=== PATIENT | female | born 1990 | race Caucasian/White ===

== ENCOUNTER 2017-04-07 03:37 | Emergency (ER) | payer BC ==
[~2017-04-07] VITALS: Ht 165.1 cm; Wt 67.1 kg
[2017-04-07 03:37] VITALS: BP 117/95
--- NOTE | 2017-04-07 04:07 | PHYS DOC ---
General Chief Complaint: ABDOMINAL PAIN Stated Complaint: PAIN IN RT SIDE ABDOMEN Time Seen by MD: 03:39 Source: patient Exam Limitations: no limitations Problems: History of Present Illness Initial Comments Patient is 26-year-old female comes to the ED complaining of abdominal pain. Patient states that she developed right lower quadrant abdominal discomfort approximately 1 AM. It is described as sharp and crampy moderate to severe at its worst however on arrival she states that it is throbbing and 3 out of 10. She has decreased appetite + nausea no vomiting or diarrhea no fever chills sweats or body aches. She denies any travel or bad food exposure and no pre- arrival treatment. Forward bending at the waist and right heel strike while walking both make her symptoms worse improved somewhat with rest. Patient has had similar symptoms although not quite as bad intermittently several times in the past couple of weeks. She says symptoms typically start at night and in the past several lasted varying periods of time resolving spontaneously. She has sought no prior medical evaluation or treatment for this and does have history of right oophorectomy, she is due to start her menstrual period. Heart rate is 109 bpm otherwise ED vital signs are unremarkable. Last by mouth intake 1800 yesterday. Timing/Duration: other Severity: moderate Modifying Factors: worse with movement Associated Symptoms: other Allergies: Coded Allergies: No Known Drug Allergies (Unverified , 04/07/17) Past Medical History Medical History: other (ovarian cyst) Surgical History: other (R oophorectomy) Social History Smoker: quit greater than 1 year Alcohol: occasionally Drugs: none Review of Systems Constitutional: see HPI, denies chills, denies fever, denies malaise Respiratory: denies cough, denies shortness of breath Cardiovascular: denies chest pain, denies palpitations Gastrointestinal: see HPI Genitourinary: denies dysuria, denies frequency, denies hematuria Musculoskeletal: denies back pain, denies joint swelling, denies neck pain Psychiatric/Neurological: denies headache, denies numbness, denies paresthesia Physical Exam General Appearance: WD/WN, no apparent distress Ear, Nose, Throat: hearing grossly normal, normal ENT inspection Neck: non-tender, supple Respiratory: normal breath sounds, no respiratory distress Cardiovascular: normal peripheral pulses, regular rate, rhythm Gastrointestinal: soft (nondistended, positive McBurney point tenderness without rebound guarding or palpable mass, bowel sounds diminished.) Rectal: deferred Back: no CVA tenderness, no vertebral tenderness Extremities: non-tender, normal inspection Neurologic/Psychiatric: didactic instructor II-XII nml as tested, no motor/sensory deficits, alert, normal mood/affect, oriented x 3 Skin: normal color, warm/dry Orders, Labs, Meds urine neg Labs and urine studies unremarkable PATIENT: DAMARIS BERRY ACCOUNT: [id number] : 1990 LOCATION: ER AGE: 26 SEX: F EXAM STATUS: REG ER ORD. PHYSICIAN: MINH NAQVI DO REASON: RLQ pain r/o appy PROCEDURE: CT ABD PELV W/ IV CONTRST ONLY INDICATION: [id number] Omni 300 75cc: Right lower quadrant abdomen pain, nausea and vomiting severe tonight, intermittent x 1 week. Hx: Right ovary and fallopian tube removed 2014 due to large cyst per patient. No priors. COMPARISON: None. TECHNIQUE: Axial CT images were obtained through the abdomen and pelvis with intravenous contrast. One or more of the following individualized dose reduction techniques were utilized for this examination: 1. Automated exposure control; 2. Adjustment of the mA and/or kV according to patient size; 3. Use of iterative reconstruction technique. FINDINGS: Abdominal aorta is not grossly aneurysmal. There are some mildly enlarged lymph nodes in the bilateral groin. Numerous low density lesions are seen scattered throughout the liver. Some of these have the appearance of cysts and others are not well characterized on this exam. No peripancreatic edema. Spleen unremarkable. Low-density lesion left kidney measuring up to 11 mm. No left-sided hydronephrosis. Urinary bladder is largely decompressed. No right-sided hydronephrosis. There is either a complex cystic lesion or multiple cystic lesions adjacent to each other within the left hemipelvis measuring up to approximately 61 x 52 mm. The appendix measures up to about 6-7 mm without definite adjacent inflammation at this time. No dilated loops of bowel to suggest obstruction. There is some disc protrusions seen within the lumbar spine. IMPRESSION: 1. There is either a complex cystic lesion in the left adnexa or multiple cystic lesions adjacent to each other. Given the size of this structure a follow-up will be needed to exclude higher grade lesions. Would correlate with symptoms within the area. If more clarification is desired at this time follow-up pelvic ultrasound could BE obtained with transabdominal and transvaginal imaging. 2. The appendix is borderline dilated but there is not definitive adjacent inflammation at this time. Please note that some patients can have a borderline dilated appendix at baseline but if there is high clinical concern for appendicitis and further imaging evaluation is desired a follow-up exam could be obtained at a later time to assess for further increase in size the appendix or development of more definitive adjacent inflammation. 3. Numerous low density lesions are seen throughout the liver. The larger 1's have the appearance of cysts with some of them too small to characterize. 4. There is also a low-density lesion left kidney. Could be an additional cyst but incompletely evaluated on this exam. If more complete characterization is desired a follow-up ultrasound could BE obtained on a nonemergent basis. In a patient of this age these are typically benign Electronically signed by: Viridiana Bhandari MD (04/07/2017 5:05 AM) [facility] [place] [facility] DICTATED AND SIGNED BY: VIRIDIANA BHANDARI MD DATE: 04/07/17 0454 CC: MINH NAQVI DO; VANCE SANCHEZ [facility] ~ 0521: I discussed findings with on-call general surgeon Dr. Reilly. He requests patient be transferred to [facility] and admitted for observation to supervisor electronic coils hospitalist. Last by mouth intake was 1800 yesterday. 0533: I discussed the patient with supervisor electronic coils hospitalist Dr. Whatley. Patient strongly requests the ability to go private auto and I feel she is stable to do so. She will call a friend or relative and they will drive her, she has had no altering medications her pain is currently controlled and her vital signs are stable. Dr Whatley accepts the patient for private auto transfer to [facility] for [facility] admission. The patient is to report to the emergency department registration desk and notify them she is a direct admission. Departure Time of Disposition: 05:34 Disposition: 02 XFER SHT-TRM HOSP Diagnosis: Abdominal Pain r/o acute appendicitis Condition: STABLE Patient Instructions: Abdominal Pain, Possible Early Appendicitis Additional Instructions: Have your cdl dedicated truck driver take you directly to [facility], ED staff can provide directions if needed. Take your discharge paperwork to the emergency department registration desk and notify them that you are a direct admission Dr. Whatley is your admitting physician. Do not eat or drink anything until cleared to do so by Dr. Reilly and do not make any stops along the way. Return to ED with new or changing symptoms. MINH NAQVI DO Apr 07, 2017 04:07
[2017-04-07] MEDS ORDERED: CONTRAST GIVEN MC PRN (04:15)
[2017-04-07 04:18] LABS: AMPHETAMINE/METHAMPHETAMINE NEG (NEG); BARBITURATES NEG (NEG); BENZODIAZEPINES NEG (NEG); CANNABINOIDS NEG (NEG); COCAINE NEG (NEG); METHADONE NEG (NEG); OPIATES NEG (NEG); PHENCYCLIDINE NEG (NEG)
[2017-04-07 04:19] LABS: BACTERIA,URINE FEW /HPF (0-FEW); BILIRUBIN,URINE NEG (NEG); CLARITY,URINE HAZY; COLOR,URINE YELLOW; GLUCOSE,URINE NEG (NEG); NITRITE,URINE NEG (NEG); UROBILINOGEN,URINE 0.2 mg/dL (0.2 mg/dL); WBC,URINE OCC /HPF (0-4)
[2017-04-07 04:20] LABS: SQUAMOUS EPITHELIAL CELL,UR MOD /LPF
[2017-04-07] MEDS ORDERED: ONDANSETRON PF 4 MG/2 ML VIAL. IV ONE (04:30)
[2017-04-07] MEDS ORDERED: IV NORMAL SALINE 1,000ML 1,000 ML IV SCH (04:30)
[2017-04-07] MEDS ORDERED: IOHEXOL 300 MG/ML 75 ML VIAL. IV ONE (04:30)
[2017-04-07] MEDS ORDERED: KETOROLAC 30 MG/ML VIAL. IV ONE (04:30)
[2017-04-07 04:44] LABS: ALBUMIN 3.7 g/dL (3.4-5.0); CREATININE 0.9 mg/dL (0.6-1.0); GFR 75.7; POTASSIUM 3.8 mmol/L (3.5-5.1); TOTAL BILIRUBIN 0.4 mg/dL (0.2-1.0); TOTAL PROTEIN 7.4 g/dL (6.4-8.2)
[2017-04-07 04:47] LABS: BASO % 0 % (0-3); EOS # 0.2 x10^3/uL (0.0-0.7); EOS % 2 % (0-3); HEMOGLOBIN 13.6 g/dL (12.0-15.5); LYMPH # 3.4 x10^3/uL (1.0-4.8); LYMPH % 37 % (24-48); MEAN CORPUSCULAR HEMOGLOBIN 31 pg (25-35); MEAN CORPUSCULAR HGB CONC 34 g/dL (31-37); MEAN CORPUSCULAR VOLUME 91 fL (79-100); MONO # 0.7 x10^3/uL (0.0-1.1); MONO % 8 % (0-9); NEUT # 4.8 x10^3uL (1.8-7.7); NEUT % 53 % (31-73); PLATELET COUNT 262 x10^3/uL (140-400); RED CELL DISTRIBUTION WIDTH 12.1 % (11.5-14.5); WHITE BLOOD COUNT 9.1 x10^3/uL (4.0-11.0)
--- NOTE | 2017-04-07 05:09 | RAD ---
INDICATION: [id number] Omni 300 75cc: Right lower quadrant abdomen pain, nausea and vomiting severe tonight, intermittent x 1 week. Hx: Right ovary and fallopian tube removed 2014 due to large cyst per patient. No priors. COMPARISON: None. TECHNIQUE: Axial CT images were obtained through the abdomen and pelvis with intravenous contrast. One or more of the following individualized dose reduction techniques were utilized for this examination: 1. Automated exposure control; 2. Adjustment of the mA and/or kV according to patient size; 3. Use of iterative reconstruction technique. FINDINGS: Abdominal aorta is not grossly aneurysmal. There are some mildly enlarged lymph nodes in the bilateral groin. Numerous low density lesions are seen scattered throughout the liver. Some of these have the appearance of cysts and others are not well characterized on this exam. No peripancreatic edema. Spleen unremarkable. Low-density lesion left kidney measuring up to 11 mm. No left-sided hydronephrosis. Urinary bladder is largely decompressed. No right-sided hydronephrosis. There is either a complex cystic lesion or multiple cystic lesions adjacent to each other within the left hemipelvis measuring up to approximately 61 x 52 mm. The appendix measures up to about 6-7 mm without definite adjacent inflammation at this time. No dilated loops of bowel to suggest obstruction. There is some disc protrusions seen within the lumbar spine. IMPRESSION: 1. There is either a complex cystic lesion in the left adnexa or multiple cystic lesions adjacent to each other. Given the size of this structure a follow-up will be needed to exclude higher grade lesions. Would correlate with symptoms within the area. If more clarification is desired at this time follow-up pelvic ultrasound could BE obtained with transabdominal and transvaginal imaging. 2. The appendix is borderline dilated but there is not definitive adjacent inflammation at this time. Please note that some patients can have a borderline dilated appendix at baseline but if there is high clinical concern for appendicitis and further imaging evaluation is desired a follow-up exam could be obtained at a later time to assess for further increase in size the appendix or development of more definitive adjacent inflammation. 3. Numerous low density lesions are seen throughout the liver. The larger 1's have the appearance of cysts with some of them too small to characterize. 4. There is also a low-density lesion left kidney. Could be an additional cyst but incompletely evaluated on this exam. If more complete characterization is desired a follow-up ultrasound could BE obtained on a nonemergent basis. In a patient of this age these are typically benign Electronically signed by: Sean Guan MD (04/07/2017 5:05 AM) [facility]
[2017-04-07] MEDS ORDERED: cefTRIAXone SODIUM 1 GM VIAL IV ONE (05:34)
[2017-04-07] MEDS ORDERED: IV NORMAL SALINE 50ML 50 ML ONE (05:34)
== END 2017-04-07 06:30 | disposition short-term general hospital (02) ==
LOC: ER 03:37
DX: K35.80 Unspecified acute appendicitis (principal); Z87.891 Personal history of nicotine dependence
CPT/HCPCS: 36415; 74177; 80053; 80307; 81001; 81025; 82550; 83690; 85025; 96361; 96365; 96375; 99285; J0696; J1885; J2405; Q9967; G0479; J7030

== ENCOUNTER 2018-04-22 20:16 | Emergency (ER) | payer BC ==
[~2018-04-22] VITALS: Ht 165.1 cm; Wt 62.6 kg
--- NOTE | 2018-04-22 21:04 | PHYS DOC ---
Past History Past Medical History: No Pertinent History, Ovarian Cyst Past Surgical History: Tonsillectomy, Other Alcohol Use: None Drug Use: None Adult General Chief Complaint Chief Complaint: ABDOMINAL PAIN HPI HPI 27-year-old female presents with epigastric abdominal pain. Patient states she' s had this pain for about 4 days. At first she thought it was acid reflux. She has taken GERD medications wuch as Tums and antacids with no relief at all. She describes the pain as a cramping sensation that stays right in her epigastric area. There does not seem to be an association with food. Nothing seems to make it worse. It does get better if she lays down for a long time but flares up again when she gets up and starts moving around. She denies any trauma or overuse. She denies fever or chills. She denies dysuria or urinary frequency. Patient does have a history of endometriosis, but this pain is different. Review of Systems Review of Systems Constitutional: Denies fever or chills [] Eyes: Denies change in visual acuity, redness, or eye pain [] HENT: Denies nasal congestion or sore throat [] Respiratory: Denies cough or shortness of breath [] Cardiovascular: No additional information not addressed in HPI [] GI: abdominal pain, nausea, vomiting. Denies bloody stools or diarrhea [] : Denies dysuria or hematuria [] Musculoskeletal: Denies back pain or joint pain [] Integument: Denies rash or skin lesions [] Neurologic: Denies headache, focal weakness or sensory changes [] Endocrine: Denies polyuria or polydipsia [] All other systems were reviewed and found to be within normal limits, except as documented in this note. Current Medications Current Medications Current Medications Medications (Trade) Dose Ordered Sig/Bernice Start Time Stop Time Status Last Admin Dose Admin Sodium Chloride 1,000 ml @ 1,000 mls/hr 1X ONCE 04/22/18 20:45 04/22/18 21:44 Allergies Allergies Allergies Coded Allergies Type Severity Reaction Last Updated Verified No Known Drug Allergies 04/07/17 No Physical Exam Physical Exam Constitutional: Well developed, well nourished, no acute distress, non-toxic appearance. [] HENT: Normocephalic, atraumatic, bilateral external ears normal, oropharynx moist, no oral exudates, nose normal. [] Eyes: PERRLA, EOMI, conjunctiva normal, no discharge. [] Neck: Normal range of motion, no tenderness, supple, no stridor. [] Cardiovascular:Heart rate regular rhythm, no murmur [] Lungs & Thorax: Bilateral breath sounds clear to auscultation [] Abdomen: Bowel sounds normal, soft, no tenderness, no masses, no pulsatile masses. [] Skin: Warm, dry, no erythema, no rash. [] Back: No tenderness, no CVA tenderness. [] Extremities: No tenderness, no cyanosis, no clubbing, ROM intact, no edema. [] Neurologic: Alert and oriented X 3, normal motor function, normal sensory function, no focal deficits noted. [] Psychologic: Affect normal, judgement normal, mood normal. [] Current Patient Data Vital Signs Vital Signs Date Time Temp Pulse Resp B/P (MAP) Pulse Ox O2 Delivery O2 Flow Rate FiO2 04/22/18 20:25 97.9 114 16 98 Room Air EKG EKG [] Radiology/Procedures Radiology/Procedures [] Impressions: CT abdomen and pelvis with contrast. HISTORY: Severe epigastric pain, nausea and vomiting, diarrhea CT scan the abdomen and pelvis was done using 75 mL Omnipaque 300 contrast. Lung bases are clear. There is no effusion. There are multiple cysts in the liver. There is no solid hepatic mass. Spleen and adrenal glands are normal. Pancreas is normal. There is a small left renal cyst. There is no renal mass or hydronephrosis. There is no adenopathy or ascites or bowel obstruction. Appendix is within normal limits in size. Uterus is normal. There is a multiseptated left ovarian cystic mass measuring 7.6 x 4.7 cm. Ultrasound would be of benefit. Delayed images show the renal collecting systems are normal. There are cysts in the liver. Ureters on the left extends just along the lateral margin of the ovarian mass. IMPRESSION: 1. Multiple ovarian cysts or a multiseptated left ovarian cystic mass. 2. Multiple hepatic cysts. 3. Normal appendix. 4. Small left renal cyst. Electronically signed by: Mane Cruz MD (04/22/2018 11:29 PM) [facility] DICTATED AND SIGNED BY: MANE CRUZ MD DATE: 04/22/18 [id number] CC: ABELINO BARBER DO; VANCE SANCHEZ [facility] Course & Med Decision Making Course & Med Decision Making Pertinent Labs and Imaging studies reviewed. (See chart for details) Patient's labs are unremarkable. Her urinalysis is unremarkable. Her CT was remarkable for multiple areas of cysts. See official read for more details. None of these conclusively explain her pain. Could be that the hepatic cysts are the cause. I did advise that the patient follow up with her PCP and discuss any specialists she should see. She is stable for discharge at this time. [] Dragon Disclaimer Dragon Disclaimer This electronic medical record was generated, in whole or in part, using a voice recognition dictation system. Departure Departure: Referrals: VANCE SANCHEZ (PCP) ABELINO BARBER DO Apr 22, 2018 21:04
[2018-04-22] MEDS: IV NORMAL SALINE 1,000ML 1,000 ML IV ONE (21:05)
[2018-04-22 21:13] LABS: BASO % 0 % (0-3); EOS # 0.2 x10^3/uL (0.0-0.7); EOS % 2 % (0-3); HEMATOCRIT 41.2 % (36.0-47.0); HEMOGLOBIN 13.8 g/dL (12.0-15.5); LYMPH # 3.9 x10^3/uL (1.0-4.8); LYMPH % 37 % (24-48); MEAN CORPUSCULAR HEMOGLOBIN 31 pg (25-35); MEAN CORPUSCULAR HGB CONC 33 g/dL (31-37); MEAN CORPUSCULAR VOLUME 92 fL (79-100); MONO # 0.8 x10^3/uL (0.0-1.1); MONO % 7 % (0-9); NEUT # 5.7 x10^3uL (1.8-7.7); NEUT % 54 % (31-73); PLATELET COUNT 304 x10^3/uL (140-400); RED CELL DISTRIBUTION WIDTH 11.9 % (11.5-14.5); WHITE BLOOD COUNT 10.7 x10^3/uL (4.0-11.0)
[2018-04-22] MEDS: ONDANSETRON PF 4 MG/2 ML VIAL. IV ONE (21:17)
[2018-04-22 21:27] LABS: BILIRUBIN,URINE NEG (NEG); CLARITY,URINE CLEAR; COLOR,URINE STRAW; GLUCOSE,URINE NEG (NEG)
[2018-04-22 21:28] LABS: ALBUMIN 4.1 g/dL (3.4-5.0); ALBUMIN/GLOBULIN RATIO 1.1 (1.0-1.7); BACTERIA,URINE 0 /HPF (0-FEW); CALCIUM 9.1 mg/dL (8.5-10.1); CREATININE 0.8 mg/dL (0.6-1.0); NITRITE,URINE NEG (NEG); POTASSIUM 3.3 mmol/L (3.5-5.1); RBC,URINE 0 /HPF (0-2); SQUAMOUS EPITHELIAL CELL,UR OCC /LPF; TOTAL BILIRUBIN 0.4 mg/dL (0.2-1.0); TOTAL PROTEIN 7.8 g/dL (6.4-8.2); UROBILINOGEN,URINE 0.2 mg/dL (0.2 mg/dL); WBC,URINE OCC /HPF (0-4)
[2018-04-22] MEDS ORDERED: CONTRAST GIVEN MC PRN (21:45)
[2018-04-22] MEDS: IOHEXOL 300 MG/ML 75 ML VIAL. IV ONE (22:22)
[2018-04-22 23:30] VITALS: BP 124/72
--- NOTE | 2018-04-22 23:33 | RAD ---
CT abdomen and pelvis with contrast. HISTORY: Severe epigastric pain, nausea and vomiting, diarrhea CT scan the abdomen and pelvis was done using 75 mL Omnipaque 300 contrast. Lung bases are clear. There is no effusion. There are multiple cysts in the liver. There is no solid hepatic mass. Spleen and adrenal glands are normal. Pancreas is normal. There is a small left renal cyst. There is no renal mass or hydronephrosis. There is no adenopathy or ascites or bowel obstruction. Appendix is within normal limits in size. Uterus is normal. There is a multiseptated left ovarian cystic mass measuring 7.6 x 4.7 cm. Ultrasound would be of benefit. Delayed images show the renal collecting systems are normal. There are cysts in the liver. Ureters on the left extends just along the lateral margin of the ovarian mass. IMPRESSION: 1. Multiple ovarian cysts or a multiseptated left ovarian cystic mass. 2. Multiple hepatic cysts. 3. Normal appendix. 4. Small left renal cyst. Electronically signed by: Mane Sarmiento MD (04/22/2018 11:29 PM) [facility]
== END 2018-04-23 | disposition home or self-care (01) ==
LOC: ER 20:16
DX: N83.202 Unspecified ovarian cyst, left side (principal); K76.89 Other specified diseases of liver; N28.1 Cyst of kidney, acquired
CPT/HCPCS: 36415; 74177; 80053; 81001; 81025; 83690; 85025; 96374; 99284; J2405; Q9967; J7030

== ENCOUNTER → 2018-09-03 | Outpatient (CLI) | payer BC ==
[2018-09-03 12:25] LABS: BASO % 0 % (0-3); EOS # 0.1 x10^3/uL (0.0-0.7); EOS % 2 % (0-3); HEMATOCRIT 39.8 % (36.0-47.0); HEMOGLOBIN 13.2 g/dL (12.0-15.5); LYMPH # 2.7 x10^3/uL (1.0-4.8); LYMPH % 34 % (24-48); MEAN CORPUSCULAR HEMOGLOBIN 30 pg (25-35); MEAN CORPUSCULAR HGB CONC 33 g/dL (31-37); MEAN CORPUSCULAR VOLUME 91 fL (79-100); MONO # 0.4 x10^3/uL (0.0-1.1); MONO % 5 % (0-9); NEUT # 4.7 x10^3uL (1.8-7.7); NEUT % 59 % (31-73); PLATELET COUNT 334 x10^3/uL (140-400); RED BLOOD COUNT 4.37 x10^6/uL (3.50-5.40)
[2018-09-04 14:28] LABS: FREE T4 1.04 ng/dL (0.76-1.46); THYROID STIM HORMONE (TSH) 1.473 uIU/mL (0.358-3.740)
== END | disposition home or self-care (01) ==
LOC: LAB 11:52
PROVIDERS: ATTEND Obstetrics & Gynecology Reproductive Endocrinology
DX: Z11.3 Encounter for screening for infections with a predominantly sexual mode of transmission (principal); Z13.29 Encounter for screening for other suspected endocrine disorder; Z13.21 Encounter for screening for nutritional disorder
CPT/HCPCS: 36415; 82306; 84439; 84443; 85025; 86592; 86703; 86704; 86803; 87340; 87491; 87591